=== PATIENT | male | born 1970 | race Caucasian/White ===

== ENCOUNTER 2019-04-28 11:01 | Emergency (ER) | payer OTHER ==
[~2019-04-28] VITALS: Ht 175.3 cm; Wt 77.1 kg
[2019-04-28 15:37] VITALS: BP 130/85
== END 2019-04-28 15:37 | disposition home or self-care (01) ==
LOC: ED 11:01
DX: J11.1 Influenza due to unidentified influenza virus with other respiratory manifestations (principal)
CPT/HCPCS: 87804; Q0092